=== PATIENT | male | born 1985 | race Caucasian/White ===

== ENCOUNTER 2022-12-14 11:17 | Emergency (ER) | payer SELFPAY ==
[~2022-12-14] VITALS: Ht 175.3 cm; Wt 90.7 kg
[2022-12-14] MEDS ORDERED: ONDANSETRON HCL INJ 2MG/ML 2ML 2 MG/ML VIAL IV STA (11:24)
[2022-12-14] MEDS ORDERED: ASPIRIN 81 MG CHEW TAB PO ONE (11:30)
[2022-12-14] MEDS ORDERED: SODIUM CHLORIDE 0.9% 1000ML 1,000 ML IV SCH (11:30)
[2022-12-14] MEDS ORDERED: Morphine 4mg INJECTION 4 MG/ML INJ IV ONE (11:45)
[2022-12-14] MEDS ORDERED: METRONIDAZOLE 500MG/NS 100ML 100 ML IV ONE (11:45)
[2022-12-14 12:10] LABS: BASOPHILS # (AUTO) 0.1 (0.0-0.1); BASOPHILS % 0.6 % (0.0-1.0); EOSINOPHILS # (AUTO) 0.1 (0.0-0.4); EOSINOPHILS % 0.9 % (0.0-6.0); HEMATOCRIT 51.2 % (38.2-49.6); HEMOGLOBIN 17.3 g/dL (14.0-18.0); LYMPHOCYTES # (AUTO) 3.8 (1.0-3.2); LYMPHOCYTES % 30.9 % (18.0-39.1); MEAN CORPUSCULAR HEMOGLOBIN 33.5 pg (28-32); MEAN CORPUSCULAR HGB CONC 33.8 g/dL (31-35); MEAN CORPUSCULAR VOLUME 99.2 fL (81-99); MONOCYTES # (AUTO) 0.8 (0.2-0.8); MONOCYTES % 6.3 % (4.4-11.3); NEUTROPHILS # (AUTO) 7.4 (2.1-6.9); PLATELET COUNT 296 x10e3/uL (140-360); RED BLOOD COUNT 5.16 x10e6/uL (4.3-5.7)
[2022-12-14 12:34] LABS: ALBUMIN/GLOBULIN RATIO 1.5 (0.8-2.0); ANION GAP 18.5 mmol/L (8-16); CALCIUM 10.2 mg/dL (8.4-10.2); CREATININE, SERUM 1.08 mg/dL (0.72-1.25); POTASSIUM 3.5 mmol/L (3.5-5.1)
[2022-12-14 12:37] LABS: SALICYLATE < 5.0 mg/dL (0-30)
[2022-12-14 12:40] LABS: CREATINE KINASE MB 0.6 ng/mL (0-5.0)
[2022-12-14] MEDS ORDERED: IOPAMIDOL 370 MG/ML 100 ML INFUS..BTL INJ ONE (12:56)
[2022-12-14] MEDS ORDERED: SODIUM CHLORIDE 0.9% 1000ML 1,000 ML IV ONE (13:00)
[2022-12-14 13:37] LABS: CLARITY,URINE CLEAR (CLEAR); COLOR,URINE YELLOW (YELLOW); KETONES,URINE 2+ (NEGATIVE); LEUKOCYTE ESTERASE ,URINE NEGATIVE (NEGATIVE); NITRITE,URINE NEGATIVE (NEGATIVE); PROTEIN,URINE DIPSTICK 1+ (NEGATIVE)
[2022-12-14 13:38] LABS: AMPHETAMINES SCREEN,URINE NEGATIVE (NEGATIVE); BENZODIAZEPINES SCREEN,URINE NEGATIVE (NEGATIVE); PHENCYCLIDINE SCREEN,URINE NEGATIVE (NEGATIVE); URINE UROBILINOGEN 0.2 mg/dL (0.2 - 1)
[2022-12-14 13:54] LABS: BACTERIA,URINE FEW /HPF; EPITHELIAL CELLS,URINE FEW /LPF
[2022-12-14] MEDS ORDERED: FLAGYL375 MG MT (15:01)
[2022-12-14] MEDS ORDERED: DICYCLOMINE HCL10 MG PO (15:02)
[2022-12-14 15:29] VITALS: BP 127/80
== END 2022-12-14 15:38 | disposition home or self-care (01) ==
LOC: ER 11:48
DX: R10.30 Lower abdominal pain, unspecified (principal); R19.7 Diarrhea, unspecified; B20 Human immunodeficiency virus [HIV] disease; F12.10 Cannabis abuse, uncomplicated; Z79.899 Other long term (current) drug therapy; Z90.89 Acquired absence of other organs
CPT/HCPCS: 36415; 71045; 74177; 80053; 80307; 80320; 80329 ×2; 81001; 82550; 82553; 82948; 83605; 83690; 84484; 85025; 87040; 93005; 99284; J2270; J2405; J2543; J7030; Q9967